=== PATIENT | male | born 1965 | race Caucasian/White ===

== ENCOUNTER 2020-05-27 19:15 | Emergency (ER) | payer MEDICARE ==
[~2020-05-27] VITALS: Ht 188 cm; Wt 66.0 kg
[~2020-05-27 19:15] MED LIST: ADVIL PM CAPLE1 EACH PO; ATENOLOL25 MG PO; AUGMENTIN 875-1 EACH PO; EXCEDRIN EXTRA1 EAC1 PO
--- NOTE | 2020-05-27 23:58 | EKG ---
[facility] [address] [facility] [place], [place] [address] Signed Normal sinus rhythm Normal ECG No previous ECGs available Confirmed by MELISA LIN MD ([id number]) on 05/27/2020 11:58:12 PM Electronically Signed By: MELISA LIN MD 05/27/20 2358 PATIENT NAME: ART VASQUEZ Electrocardiogram DATE OF : 65 PHYSICIAN: MELISA LIN MD REPORT #: [id number] REPORT IS CONFIDENTIAL AND NOT TO BE RELEASED WITHOUT AUTHORIZATION
== END 2020-05-27 21:31 | disposition home or self-care (01) ==
LOC: ED 19:15
DX: G89.18 Other acute postprocedural pain (principal); R10.31 Right lower quadrant pain; E87.6 Hypokalemia
CPT/HCPCS: 80053; 85025; 93005; 93010; 99285-25